=== PATIENT | male | born 1940 | race Caucasian/White ===

== ENCOUNTER 2019-04-29 08:13 | Day surgery (SDC) | payer MEDICARE ==
[~2019-04-29] VITALS: Ht 188 cm; Wt 106.0 kg
[~2019-04-29 08:13] MED LIST: APIX5TAB PO; ASCO500T2 PO; ASPI-630 PO; ATOR10TA PO; BUPIVACAINE-EPI 0.5%-1:200000 MPF 30 ML VIAL. ONE; CALC600T23 PO; CELE200C PO; GLUC1CAP57 PO; HYDROmorphone 2 MG/ML VIAL IV PRN; IV RINGERS,LACTATED 1000ML 1,000 ML IV SCH; LIDOCAINE 1% PF 2 ML VIAL. ID PRN; LISI2.5T PO; METO25TA4 PO; MORPHINE SULFATE 2 MG/ML VIAL. IV PRN; MULT-658 PO; ONDANSETRON PF 4 MG/2 ML VIAL. IV PRN; OXYC1TAB15 PO; PROCHLORPERAZINE 10 MG/2 ML VIAL. IV PRN; VITA-8 PO; [UNRECOGNIZED DRUG - CODE] PO; fentaNYL PF VIAL 100 MCG/2 ML VIAL IV PRN
[2019-04-29] MEDS ORDERED: DEXAMETHASONE SOD PHOS 4 MG/ML VIAL ONE (08:50)
[2019-04-29] MEDS ORDERED: PROPOFOL 20 ML IV ONE (08:50)
[2019-04-29] MEDS ORDERED: LIDOCAINE 2% PF 5 ML VIAL. ONE (08:50)
[2019-04-29] MEDS ORDERED: ONDANSETRON PF 4 MG/2 ML VIAL. ONE (08:50)
[2019-04-29] MEDS ORDERED: fentaNYL PF VIAL 100 MCG/2 ML VIAL ONE (08:51)
[2019-04-29] MEDS ORDERED: ceFAZolin 2GM PREMIX 2 GM/50 ML BAG IV ONE (09:00)
[2019-04-29] MEDS ORDERED: BUPIVACAINE-EPI 0.5%-1:200000 MPF 30 ML VIAL. ONE (09:08)
[2019-04-29] MEDS ORDERED: SEVOFLURANE 16 TO 30 MINUTES. IH ONE (09:48)
[2019-04-29] MEDS ORDERED: PHENYLEPHRINE in 0.9% NACL PF 1 MG/10 ML SYRINGE. IV ONE (09:48)
[2019-04-29] MEDS ORDERED: HYDR-3164 PO (11:06)
--- NOTE | 2019-04-29 11:14 | DISCH ---
DISCHARGE INSTRUCTIONS Condition on Discharge Condition on Discharge: Stable Activity After Discharge Activity Instructions for Disc: Activity as tolerated, Avoid exertion Lifting Instructions after Dis: No heavy lifting Driving Instructions after Dis: Do not drive (3-4 days) Diet after Discharge Diet after Discharge: Cardiac, Regular Checks after Discharge Checks after discharge: Check blood press - daily Follow-Up Follow up with: Vincent next week Warfarin Follow-Up Warfarin Follow UP: resumdwain Palacio Monday ALE LARSEN MD Apr 29, 2019 11:14
[2019-04-29 11:35] VITALS: BP 143/73
[2019-04-29] MEDS ORDERED: HYDROcodone/APAP 5/325MG 1 TAB TABLET ONE (12:27)
[2019-04-29] MEDS ORDERED: HYDROcodone/APAP 5/325MG 1 TAB TABLET PO ONE (13:00)
--- NOTE | 2019-04-29 16:24 | PDOC ---
BRIEF OPERATIVE NOTE Date: Apr 29, 2019 Pre-Op Diagnosis recurrent right inguinal hernia Post-Op Diagnosis same Procedure Performed repair with mesh Surgeon Vincent Crucible Packer Vee PEREZ Anesthesia Type: General (LMA) Blood Loss 25cc IV Fluid 700cc Specimens Obtained cord lipoma Findings recurrent indirect hernia Complications none Operative Note Wk # [id number] ALE LARSEN MD Apr 29, 2019 16:24
--- NOTE | 2019-04-29 17:42 | OP ---
DATE OF SURGERY: 04/29/2019 PREOPERATIVE DIAGNOSIS: Recurrent right inguinal hernia. POSTOPERATIVE DIAGNOSIS: Recurrent right inguinal hernia, indirect. PROCEDURE: Repair with mesh. SURGEON: Corona Larsen MD ANESTHESIA: General LMA. DRAWER LINER: CHRIS Joel ESTIMATED BLOOD LOSS: 25 mL. INTRAVENOUS FLUIDS: 700 mL. DESCRIPTION OF PROCEDURE: The patient brought to the operating suite, given a general LMA and the right groin prepped and draped in usual sterile fashion. A 0.5% Marcaine with epinephrine was infiltrated and the old scar was incised and dissection carried down to the external oblique fascia. Bleeders were cauterized or tied as identified. The fascia was opened in the direction of its fibers and carefully reflected off the underlying structures. This allowed encircling the cord and carrying dissection back to the internal ring. The previously placed plug had been extruded from the internal ring and as such was removed. The indirect sac was identified, skeletonized and reduced. This was held in reduction with a large plug of Phasix mesh, tacked with 2-0 PDS, taking care to avoid injury to adjacent vessels. A keyhole patch was placed over the floor of the canal. The slit closed with a single 2-0 PDS stitch and the area checked for adequate hemostasis. When present and a correct sponge count had been obtained, the cord was returned to its normal anatomical position. A lipoma of the cord was skeletonized and removed with LigaSure. When sponge count was correct and hemostasis was present, the external oblique fascia was closed in running fashion with 3-0 Vicryl. Subcutaneous approximated with 3-0 Vicryl, skin closed with a subcuticular 4-0 Monocryl. Steri-Strips and sterile dressing applied. Prior to emergence from anesthesia, digital rectal exam failed to reveal evidence of prostatic enlargement or nodularity. The patient was awakened from his anesthetic and taken to the recovery room in satisfactory condition. CORONA LARSEN MD DR: JOE/jose JOB#: [id number] / [id number]
--- NOTE | 2019-04-30 17:06 | PATHOLOGY ---
[facility] Accession Number: [id number] . 01 Material submitted: . inguinal area - LIPOMA OF THE CORD . 01 Clinical history: . None provided . 02 Diagnosis: Segment of fibromembranous and adipose tissue, right inguinal hernia repair: - Lipoma of cord. . (JPM:mm; 04/30/2019) [facility] 04/30/2019 1308 Local . 02 Electronically signed: . Ramon Smith MD, Pathologist NPI- [id number] . 01 Gross description: . The specimen is received in formalin, labeled "Timo Carreon, lipoma of the cord" and consists of a segment of yellow lobulated tissue encased with pink-amaral membranous tissue measuring 5.8 x 2.3 x 1.3 cm. Sectioning reveals congestion and no gross lesions. Fitting Room Supervisor sections are submitted in A1. (SDY; 04/29/2019) [facility]/SYU 04/29/2019 1732 Local . 02 Pathologist provided ICD-10: D17.5 . 02 CPT . 377756 Specimen Comment: A courtesy copy of this report has been sent to [phone] Specimen Comment: [id number] Specimen Comment: Report sent to / DR YODER Performed at: 01 [facility] [address] [address] [facility] [address], [place] [id number] MD Kiel Garza MD Phone: [phone] Performed at: 02 [facility] [address] [place], [place] [id number] MD Ramon Smith MD Phone: [phone]
== END 2019-04-29 12:40 | disposition home or self-care (01) ==
LOC: SURG 08:13
PROVIDERS: ATTEND Surgery
DX: K40.91 Unilateral inguinal hernia, without obstruction or gangrene, recurrent (principal); E78.00 Pure hypercholesterolemia, unspecified; I48.91 Unspecified atrial fibrillation; E66.9 Obesity, unspecified; Z68.30 Body mass index [BMI] 30.0-30.9, adult; Z86.73 Personal history of transient ischemic attack (TIA), and cerebral infarction without residual deficits; Z87.891 Personal history of nicotine dependence; Z86.010 Personal history of colon polyps; Z98.890 Other specified postprocedural states; Z87.39 Personal history of other diseases of the musculoskeletal system and connective tissue; Z72.89 Other problems related to lifestyle; Z85.46 Personal history of malignant neoplasm of prostate
CPT/HCPCS: 49520; A7015; C1781; J0696; J1100; J2001; J2370; J2405; J2704; J3010; J3490